=== PATIENT | male | born 1965 | race African-American/Black ===

== ENCOUNTER 2018-02-16 20:37 | Inpatient (IN) | payer OTHER ==
--- NOTE | 2018-02-16 20:57 | HP ---
COWS - Scale Resting Pulse: 0= [place] 80 or Below Sweatin=Flushed/Facial Moisture Restless Observation: 5= Unable to Sit Still Pupil Size: 0= Normal to Room Light Bone or Joint Aches: 4=Acute Joint/Muscle Pain Runny Nose/ Eye Tearin= Runny Nose/Eyes GI Upset > 30mins: 2= Nausea/Diarrhea Tremor Observation: 4= Gross Tremor/Twitching Yawning Observation: 0= None Anxiety or Irritability: 2=Irritable/Anxious Goose Flesh Skin: 0=Smooth Skin COWS Score: 21 CIWA Score - CIWA Score Nausea/Vomitin Muscle Tremors: 4-Moderate,w/Arms Extend Anxiety: 4-Mod. Anxious/Guarded Agitation: 6 Paroxysmal Sweats: 4-Forehead w/Sweat Beads Orientation: 0-Oriented Tacttile Disturbances: 0-None Auditory Disturbances: 0-None Visual Disturbances: 0-None Headache: 2-Mild CIWA-Ar Total Score: 25 Admission ROS BHS - HPI Chief Complaint: C/O WITHDRAWAL SX'S. SEEKING DETOX Allergies/Adverse Reactions: Allergies Allergy/AdvReac Type Severity Reaction Status Date / Time Fish Containing Products Allergy Intermediate Hives Verified 03/15/15 17:34 No Known Drug Allergies Allergy Verified 03/15/15 17:44 History of Present Illness: 52 Y.O. MALE WITH LONG HX/O OF ALCOHOLISM AND OPIOID DEPENDENCE HERE FOR DETOX. CLIENT IS KNOWN TO THIS PROGRAM LAST HERE 2014. REFERRED FROM [facility] AFTER PRESENTING THERE FOR SOB/ COUGH. HE WAS MEDICALLY CLEARED AND REFERRED TO DETOX. DC PAPERS PRESENTED. REPORTS LONGEST CLEAN TIME 2 YEARS SELF SUSTAINED. RELAPSING 4 MONTHS AGO. DENIES HX/O SEIZURES, DT'S AVH. DOES REPORT BLACK OUTS AND HX/O OVERDOSE X1 Exam Limitations: No Limitations - Ebola screening Have you traveled outside of the country in the last 21 days: No Have you had contact with anyone from an Ebola affected area: No Have you been sick,other than usual withdrawal symptoms: No Do you have a fever: No - Review of Systems Constitutional: Chills, Loss of Appetite, Malaise, Night Sweats, Changes in sleep, Unintentional Wgt. Loss EENT: reports: Recent change in vision (LEFT EYE), Nose Congestion (RINORRHEA), Dental Problems (DENTURES) Respiratory: reports: Cough (NEG CXR AT [facility] TODAY), Productive cough ( [facility]), Other (HX/O BRONCHITIS ON SYMBICORT) Cardiac: reports: No Symptoms Reported GI: reports: Diarrhea, Nausea, Poor Appetite, Poor Fluid Intake, Vomiting : reports: No Symptoms Reported Musculoskeletal: reports: No Symptoms Reported Integumentary: reports: No Symptoms Reported Neuro: reports: No Symptoms reported Endocrine: reports: Other (HX/O DM) Hematology: reports: No Symptoms Reported Psychiatric: reports: Agitated, Anxious, Depressed Other Systems: Reviewed and Negative Patient History - Patient Medical History Hx Anemia: No Hx Asthma: Yes (BRONCHITIS) Hx Chronic Obstructive Pulmonary Disease (COPD): No Hx Cancer: No Hx Cardiac Disorders: No Hx Congestive Heart Failure: No Hx Hypertension: No Hx Hypercholesterolemia: No Hx Pacemaker: No HX Cerebrovascular Accident: No Hx Seizures: No Hx Dementia: No Hx Diabetes: Yes (NO MED MGMT) Hx Gastrointestinal Disorders: No Hx Liver Disease: No Hx Genitourinary Disorders: No Hx Sexually Transmitted Disorders: No Hx Renal Disease (ESRD): No Hx Thyroid Disease: No Hx Human Immunodeficiency Virus (HIV): Yes (SINCE 1997,) Hx Hepatitis C: No Hx Depression: Yes Hx Suicide Attempt: No Hx Bipolar Disorder: No Hx Schizophrenia: No Other Medical History: DENIES - Patient Surgical History Past Surgical History: No Hx Neurologic Surgery: No Hx Cataract Extraction: No Hx Cardiac Surgery: No Hx Lung Surgery: No Hx Breast Surgery: No Hx Breast Biopsy: No Hx Abdominal Surgery: No Hx Appendectomy: No Hx Cholecystectomy: No Hx Genitourinary Surgery: No Hx Section: No Hx Orthopedic Surgery: No Anesthesia Reaction: No - PPD History Previous Implant?: Yes Documented Results: Negative w/proof Implanted On Prior R Admission?: Yes Date: 03/17/15 Results: 0mm PPD to be Administered?: Yes - Smoking Cessation Smoking history: Current every day smoker Have you smoked in the past 12 months: Yes Aproximately how many cigarettes per day: 10 Cigars Per Day: 0 Hx Chewing Tobacco Use: No Initiated information on smoking cessation: Yes 'Breaking Loose' booklet given: 02/16/18 - Substance & Tx. History Hx Alcohol Use: Yes Hx Substance Use: Yes Substance Use Type: Alcohol, Heroin, Marijuana Hx Substance Use Treatment: Yes ([facility]) - Substances Abused HEROIN Route: SNIFFING Frequency: Daily Amount used: 10 BAGS Age of first use: 36 Date of Last Use: 02/16/18 BEER/VODKA Route: Oral Frequency: Daily Amount used: 2-6PACK/3PINTS Age of first use: 11 Date of Last Use: 02/16/18 THC Route: Smoking Frequency: Daily Amount used: 1 JOINT Age of first use: 11 Date of Last Use: 02/16/18 Family Disease History - Family Disease History Family Disease History: Diabetes: Mother (HTN), Heart Disease: Mother, CA: Sister Admission Physical Exam [facility] - Vital Signs Vital Signs: Vital Signs - 24 hr 02/16/18 20:50 Temperature 98.2 F Pulse Rate 80 Respiratory 18 Rate Blood Pressure 109/57 - Physical General Appearance: Yes: Appropriately Dressed, Mild Distress, Cachetic, Thin, Irritable, Anxious HEENTM: Yes: EOMI, Normocephalic, Normal Voice, LARRY, Pharynx Normal, Nasal Congestion, Other (DENTURES UUPER/LOWER) Respiratory: Yes: Chest Non-Tender, Lungs Clear, Normal Breath Sounds, No Respiratory Distress, No Accessory Muscle Use Neck: Yes: No masses,lesions,Nodules, Supple, Trachea in good position Breast: Yes: Breast Exam Deferred Cardiology: Yes: Regular Rhythm, Regular Rate, S1, S2 Abdominal: Yes: Normal Bowel Sounds, Non Tender, Flat, Soft Genitourinary: Yes: Within Normal Limits Back: Yes: Normal Inspection Musculoskeletal: Yes: full range of Motion, Gait Steady Extremities: Yes: Normal Range of Motion, Non-Tender Neurological: Yes: management associate II-XII NML intact, Fully Oriented, Alert, Motor Strength 5/5 Integumentary: Yes: Warm, Moist Lymphatic: Yes: Within Normal Limits - Diagnostic (1) History of bronchitis Current Visit: Yes Status: Acute (2) Alcohol dependence with uncomplicated withdrawal Current Visit: Yes Status: Acute (3) Opioid dependence with withdrawal Current Visit: Yes Status: Acute (4) Alcohol-induced mood disorder Current Visit: Yes Status: Suspected (5) Alcohol-induced sleep disorder Current Visit: Yes Status: Suspected (6) Drug-induced mood disorder Current Visit: Yes Status: Suspected (7) Weight decreased Current Visit: Yes Status: Chronic (8) Acquired immune deficiency syndrome (AIDS) Current Visit: Yes Status: Chronic Comment: NON COMPLIANT WITH MEDS (9) Asthma Current Visit: Yes Status: Chronic Qualifiers: Asthma severity: mild Asthma persistence: intermittent Asthma complication type: unspecified Qualified Code(s): J45.20 - Mild intermittent asthma, uncomplicated (10) Type 2 diabetes mellitus Current Visit: Yes Status: Chronic Comment: STATES NOT ON MED MGMT Cleared for Admission BHS - Detox or Rehab S Level of Care: Medically Managed Detox Regimen/Protocol: Methadone/Librium Claeared for Rehab Admission: No BHS Breath Alcohol Content Breath Alcohol Content: 0.143 Urine Drug Screen - Results Drug Screen Negative: No Urine Drug Screen Results: THC-Marijuana, OPI-Opiates
[2018-02-16] MEDS ORDERED: ALBUTEROL SO4 8 GM HFA INHALER IH PRN (21:12)
[2018-02-16] MEDS ORDERED: IBUPROFEN 400 MG TABLET (FP) PO PRN (21:29)
[2018-02-16] MEDS ORDERED: hydrOXYzine PAMOATE 50 MG CAPSULE (FP) PO PRN (21:29)
[2018-02-16] MEDS ORDERED: MAGNESIUM CITRATE 300 ML BOTTLE PO PRN (21:29)
[2018-02-16] MEDS ORDERED: ACETAMINOPHEN 325 MG TABLET (FP) PO PRN (21:29)
[2018-02-16] MEDS ORDERED: MAGNESIUM HYDROX 2400MG/30ML ORAL SUSPENSION 30 ML CUP PO PRN (21:29)
[2018-02-16] MEDS ORDERED: METHADONE HCL 10 MG TABLET (FOR DETOX USE ONLY) PO ONE ×2 (21:29→23:00)
[2018-02-16] MEDS ORDERED: P-EPHED 60MG/TRIPROLIDI 2.5MG TABLET PO PRN (21:29)
[2018-02-16] MEDS ORDERED: MAG HYDROX/AL HYDROX/SIMETH 30 ML UNIT-DOSE CUP PO PRN (21:29)
[2018-02-16] MEDS ORDERED: LOPERAMIDE HCL 2 MG CAPSULE PO PRN (21:29)
[2018-02-16] MEDS ORDERED: NICOTINE POLACRILEX 2 MG GUM BC PRN (21:29)
[2018-02-16] MEDS ORDERED: MENTHOL/PHENOL 1 EACH UD MM PRN (21:29)
[2018-02-16] MEDS ORDERED: guaiFENesin/D-METHORPHAN HB 10 ML UNIT-DOSE CUPS PO PRN (21:29)
[2018-02-16] MEDS ORDERED: MELATONIN 5 MG TABLETS PO PRN (22:00)
[2018-02-16] MEDS: THIAMINE HCL 100 MG TABLET (FP) PO SCH (23:15)
[2018-02-16] MEDS: chlordiazePOXIDE HCL 25 MG CAPSULE PO SCH (23:16)
[2018-02-16 23:52] LABS: URINE APPEARANCE CLEAR; URINE BILIRUBIN NEGATIVE (<2.0 mg/dL); URINE COLOR STRAW; URINE GLUCOSE (UA) NEGATIVE (NEGATIVE); URINE KETONE NEGATIVE (NEGATIVE); URINE LEUK ESTERASE NEGATIVE (NEGATIVE); URINE NITRITE NEGATIVE (NEGATIVE); URINE PROTEIN NEGATIVE (NEGATIVE); URINE UROBILINOGEN NEGATIVE mg/dL (0.2-1.0)
[2018-02-17] MEDS: chlordiazePOXIDE HCL 25 MG CAPSULE PO SCH ×4 (05:28→22:15)
--- NOTE | 2018-02-17 09:31 | PN ---
S CIWA - CIWA Score Nausea/Vomitin Muscle Tremors: 3 Anxiety: 3 Agitation: 2 Paroxysmal Sweats: 1-Minimal Palms Moist Orientation: 0-Oriented Tacttile Disturbances: 1-Very Mild Itch/Numbness Auditory Disturbances: 1-Very Mild Visual Disturbances: 0-None Headache: 2-Mild CIWA-Ar Total Score: 16 BHS Progress Note (SOAP) Subjective: alert,irritable,anxious,interrupted sleep,tremor Objective: 02/17/18 09:28 Vital Signs Temperature 97.7 F 02/17/18 09:04 Pulse Rate 76 02/17/18 09:04 Respiratory Rate 18 02/17/18 09:04 Blood Pressure 113/59 02/17/18 09:04 O2 Sat by Pulse Oximetry (%) ekg nsr 71/min qt/qtc 380/412 no chest pain,no sob,no dizziness Laboratory Last Values Urine Color Straw 02/16/18 23:06 Urine Appearance Clear 02/16/18 23:06 Urine pH 6.0 (5.0-8.0) 02/16/18 23:06 Ur Specific [place] 1.003 (1.001-1.035) 02/16/18 23:06 Urine Protein Negative (NEGATIVE) 02/16/18 23:06 Urine Glucose (UA) Negative (NEGATIVE) 02/16/18 23:06 Urine Ketones Negative (NEGATIVE) 02/16/18 23:06 Urine Blood Negative (NEGATIVE) 02/16/18 23:06 Urine Nitrite Negative (NEGATIVE) 02/16/18 23:06 Urine Bilirubin Negative (<2.0 mg/dL) 02/16/18 23:06 Urine Urobilinogen Negative mg/dL (0.2-1.0) 02/16/18 23:06 Ur Leukocyte Esterase Negative (NEGATIVE) 02/16/18 23:06 labs pending Assessment: 02/17/18 09:30 withdrawal symptom Plan: continue detox,bgm monitoring
[2018-02-17 09:45] LABS: HEMATOCRIT 43.3 % (35.4-49); HEMOGLOBIN 14.3 GM/dL (11.7-16.9); MCH 30.5 pg (25.7-33.7); MCHC 33.1 g/dl (32.0-35.9); MEAN PLT VOLUME 8.8 fl (7.5-11.1); PLATELET COUNT 194 K/MM3 (134-434); RDW 13.6 % (11.9-15.9); WHITE BLOOD COUNT 2.5 K/mm3 (4.0-10.0)
[2018-02-17] MEDS ORDERED: METHADONE HCL 10 MG TABLET (FOR DETOX USE ONLY) PO SCH (10:00)
[2018-02-17] MEDS: PRENATAL VITAMINS W/ FOLIC ACID TABLET (FP) PO SCH (10:25)
[2018-02-17] MEDS: NICOTINE 14 MG/24 HOURS TOPICAL PATCH TD SCH (10:25)
[2018-02-17 10:34] LABS: ALBUMIN 3.3 g/dl (3.4-5.0); ANION GAP 9 (8-16); BILIRUBIN,TOTAL 0.3 mg/dL (0.2-1.0); BLOOD UREA NITROGEN 6 mg/dL (7-18); CALCIUM 8.6 mg/dL (8.5-10.1); CHLORIDE 107 mmol/L (98-107); CO2 28 mmol/L (21-32); CREATININE 0.5 mg/dL (0.7-1.3); GLUCOSE,RANDOM 87 mg/dL (74-106); SGOT/AST 59 U/L (15-37); SGPT/ALT 58 U/L (12-78); SODIUM 144 mmol/L (136-145); TOT PROT 6.5 g/dl (6.4-8.2)
[2018-02-17 10:35] LABS: ALK PHOS 56 U/L (45-117)
--- NOTE | 2018-02-17 13:06 | CONSULT ---
[facility] Psychiatric Consult - Data Date of interview: 02/17/18 Admission source: [facility] Identifying data: Patient is a 52 year old single male, without kids, unemployed , and residing with girlfriend. This is one of multiple admissions for patient. Pt. admitted to for alcohol and opiate dependence. Substance Abuse History: Smoking Cessation. Smoking history: Current every day smoker. Have you smoked in the past 12 months: Yes. Aproximately how many cigarettes per day: 10. Cigars Per Day: 0. Hx Chewing Tobacco Use: No. Initiated information on smoking cessation: Yes. 'Breaking Loose' booklet given : 02/17/18. - Substance & Tx. History. Hx Alcohol Use: Yes. Hx Substance Use : Yes. Substance Use Type: Alcohol. Hx Substance Use Treatment: Yes ([facility]). - Substances Abused. VODKA. Route: Oral. Frequency: Daily. Amount used: 2 PINTS. Age of first use: 14. Date of Last Use: 02/16/18 Medical History: Asthma, Diabetes, HIV Psychiatric History: Patient reports two psychiatric hospitalizations in [facility] "many years ago" but is unable to recall the name of the psychiatric facility. OPD is currently provided in the [place], [place]. States he is prescribed seroquel 25mg and mirtzapine 15mg. Most recently took medications 4-5 months ago. Reports nonadherence due to drug use. Pt. prefers to complete detox before restarting psychotropic medications. Pt. denies h/o suicide attempt. Physical/Sexual Abuse/Trauma History: Denies. Mental Status Exam - Mental Status Exam Alert and Oriented to: Time, Place, Person Cognitive Function: Good Patient Appearance: Well Groomed Mood: Euthymic Affect: Mood Congruent Patient Behavior: Appropriate, Cooperative Speech Pattern: Appropriate Voice Loudness: Normal Thought Process: Goal Oriented Thought Disorder: Not Present Hallucinations: Denies Suicidal Ideation: Denies Homicidal Ideation: Denies Insight/Judgement: Poor Sleep: Fair Appetite: Fair Muscle strength/Tone: Normal Gait/Station: Normal Psychiatric Findings - Problem List ([place] 1, 2,3) (1) Substance induced mood disorder Current Visit: Yes Status: Acute (2) Alcohol dependence with uncomplicated withdrawal Current Visit: Yes Status: Acute (3) Opioid dependence with withdrawal Current Visit: Yes Status: Acute - Initial Treatment Plan Initial Treatment Plan: Psychoeducation provided. Detoxification in progress. Observation.
--- NOTE | 2018-02-17 13:57 | EKG ---
Test Reason : Blood Pressure : / mmHG Vent. Rate : 071 BPM Atrial Rate : 071 BPM P-R Int : 156 ms QRS Dur : 088 ms QT Int : 380 ms P-R-T Axes : 067 064 074 degrees QTc Int : 412 ms NORMAL SINUS RHYTHM SEPTAL INFARCT , AGE UNDETERMINED ABNORMAL ECG NO PREVIOUS ECGS AVAILABLE Confirmed by Jose Luis Mendoza MD ([id number]) on 02/17/2018 1:57:02 PM Referred By: Confirmed By:Jose Luis Mendoza MD
[2018-02-17] MEDS: THIAMINE HCL 100 MG TABLET (FP) PO SCH (22:15)
[2018-02-18] MEDS: chlordiazePOXIDE HCL 25 MG CAPSULE PO SCH ×3 (05:56→17:40)
[2018-02-18] MEDS: PRENATAL VITAMINS W/ FOLIC ACID TABLET (FP) PO SCH (11:22)
[2018-02-18] MEDS: METHADONE HCL 5 MG TABLET (FOR DETOX USE ONLY) PO SCH (11:22)
[2018-02-18] MEDS: NICOTINE 14 MG/24 HOURS TOPICAL PATCH TD SCH (11:24)
--- NOTE | 2018-02-18 12:22 | PN ---
S CIWA - CIWA Score Nausea/Vomitin Muscle Tremors: 3 Anxiety: 3 Agitation: 2 Paroxysmal Sweats: 1-Minimal Palms Moist Orientation: 0-Oriented Tacttile Disturbances: 1-Very Mild Itch/Numbness Auditory Disturbances: 1-Very Mild Visual Disturbances: 0-None Headache: 2-Mild CIWA-Ar Total Score: 16 BHS COWS - Scale Resting Pulse: 0= [place] 80 or Below Sweatin= Chills/Flushing Restless Observation: 3= Extraneous Movement Pupil Size: 1= Pupils >than Normal Bone or Joint Aches: 2= Severe Diffuse Aches Runny Nose/ Eye Tearin= Nasal Congestion GI Upset > 30mins: 2= Nausea/Diarrhea Tremor Observation of Outstretched Hands: 2= Slight Tremor Visible Yawning Observation: 0= None Anxiety or Irritability: 2=Irritable/Anxious Goose Flesh Skin: 0=Smooth Skin COWS Score: 14 BHS Progress Note (SOAP) Subjective: alert,irritable,anxious,interrupted sleep,pain in the body Objective: 02/18/18 12:20 Vital Signs Temperature 97.5 F L 02/18/18 11:33 Pulse Rate 81 02/18/18 11:33 Respiratory Rate 16 02/18/18 11:33 Blood Pressure 92/76 02/18/18 11:33 O2 Sat by Pulse Oximetry (%) Laboratory Last Values WBC 2.5 K/mm3 (4.0-10.0) L 02/17/18 07:00 RBC 4.70 M/mm3 (4.00-5.60) 02/17/18 07:00 Hgb 14.3 GM/dL (11.7-16.9) 02/17/18 07:00 Hct 43.3 % (35.4-49) 02/17/18 07:00 MCV 92.0 fl (80-96) 02/17/18 07:00 MCH 30.5 pg (25.7-33.7) 02/17/18 07:00 MCHC 33.1 g/dl (32.0-35.9) 02/17/18 07:00 RDW 13.6 % (11.9-15.9) 02/17/18 07:00 Plt Count 194 K/MM3 (134-434) D 02/17/18 07:00 MPV 8.8 fl (7.5-11.1) 02/17/18 07:00 Sodium 144 mmol/L (136-145) 02/17/18 07:00 Potassium 4.0 mmol/L (3.5-5.1) 02/17/18 07:00 Chloride 107 mmol/L (98-107) 02/17/18 07:00 Carbon Dioxide 28 mmol/L (21-32) 02/17/18 07:00 Anion Gap 9 (8-16) 02/17/18 07:00 BUN 6 mg/dL (7-18) L 02/17/18 07:00 Creatinine 0.5 mg/dL (0.7-1.3) L 02/17/18 07:00 Creat Clearance w eGFR > 60 (>60) 02/17/18 07:00 POC Glucometer 92 UNITS (80-120) 02/18/18 07:34 Random Glucose 87 mg/dL (74-106) 02/17/18 07:00 Calcium 8.6 mg/dL (8.5-10.1) 02/17/18 07:00 Total Bilirubin 0.3 mg/dL (0.2-1.0) 02/17/18 07:00 AST 59 U/L (15-37) H D 02/17/18 07:00 ALT 58 U/L (12-78) D 02/17/18 07:00 Alkaline Phosphatase 56 U/L (45-117) 02/17/18 07:00 Total Protein 6.5 g/dl (6.4-8.2) 02/17/18 07:00 Albumin 3.3 g/dl (3.4-5.0) L 02/17/18 07:00 Urine Color Straw 02/16/18 23:06 Urine Appearance Clear 02/16/18 23:06 Urine pH 6.0 (5.0-8.0) 02/16/18 23:06 Ur Specific [place] 1.003 (1.001-1.035) 02/16/18 23:06 Urine Protein Negative (NEGATIVE) 02/16/18 23:06 Urine Glucose (UA) Negative (NEGATIVE) 02/16/18 23:06 Urine Ketones Negative (NEGATIVE) 02/16/18 23:06 Urine Blood Negative (NEGATIVE) 02/16/18 23:06 Urine Nitrite Negative (NEGATIVE) 02/16/18 23:06 Urine Bilirubin Negative (<2.0 mg/dL) 02/16/18 23:06 Urine Urobilinogen Negative mg/dL (0.2-1.0) 02/16/18 23:06 Ur Leukocyte Esterase Negative (NEGATIVE) 02/16/18 23:06 RPR Titer Nonreactive (NONREACTIVE) 02/17/18 07:00 Assessment: 02/18/18 12:21 withdrawal symptom Plan: continue detox,bgm monitoring
[2018-02-18] MEDS: chlordiazePOXIDE HCL 25 MG CAPSULE PO PRN (14:28)
[2018-02-18] MEDS: chlordiazePOXIDE 5 MG CAPSULE PO SCH (22:24)
[2018-02-18] MEDS: THIAMINE HCL 100 MG TABLET (FP) PO SCH (22:24)
[2018-02-18] MEDS: RITONAVIR/LOPINAVIR 50MG/200MG 1 COMBO TABLET PO SCH (22:25)
[2018-02-19] MEDS: chlordiazePOXIDE HCL 25 MG CAPSULE PO PRN (03:38)
[2018-02-19] MEDS: chlordiazePOXIDE 5 MG CAPSULE PO SCH ×3 (05:40→17:38)
[2018-02-19] MEDS: PRENATAL VITAMINS W/ FOLIC ACID TABLET (FP) PO SCH (10:19)
[2018-02-19] MEDS: SULFAMETHOXAZOLE/TRIMETHOPRIM 800MG/160MG D.S. TABLET PO SCH (10:19)
[2018-02-19] MEDS: RITONAVIR/LOPINAVIR 50MG/200MG 1 COMBO TABLET PO SCH ×2 (10:20→22:06)
[2018-02-19] MEDS: EMTRICITABINE 200MG/TENOFOVIR 300MG PO SCH (10:20)
[2018-02-19] MEDS: METHADONE HCL 5 MG TABLET (FOR DETOX USE ONLY) PO SCH (10:20)
[2018-02-19] MEDS: NICOTINE 14 MG/24 HOURS TOPICAL PATCH TD SCH (10:22)
--- NOTE | 2018-02-19 12:29 | PN ---
S Progress Note (SOAP) Subjective: alert,irritable,anxious,interrupted sleep Objective: 02/19/18 12:28 Vital Signs Temperature 97.7 F 02/19/18 10:09 Pulse Rate 69 02/19/18 10:09 Respiratory Rate 18 02/19/18 10:09 Blood Pressure 103/66 02/19/18 10:09 O2 Sat by Pulse Oximetry (%) Assessment: 02/19/18 12:28 withdrawal symptom Plan: continue detox,discharge in am
[2018-02-19] MEDS: chlordiazePOXIDE HCL 10 MG CAPSULE PO SCH (22:06)
[2018-02-19] MEDS: THIAMINE HCL 100 MG TABLET (FP) PO SCH (22:06)
[2018-02-20] MEDS: chlordiazePOXIDE HCL 10 MG CAPSULE PO SCH (05:52)
--- NOTE | 2018-02-20 08:17 | PN ---
S Progress Note (SOAP) Subjective: alert,no complaint Objective: 02/20/18 08:14 Vital Signs Temperature 97.9 F 02/20/18 06:46 Pulse Rate 69 02/20/18 06:46 Respiratory Rate 18 02/20/18 06:46 Blood Pressure 90/50 02/20/18 06:46 O2 Sat by Pulse Oximetry (%) Assessment: 02/20/18 08:14 patient is stable for discharge today,would like to go home Plan: discharge today,follow up with after care program as arrangement and primary care provider for medical follow up, has all medications at home
--- NOTE | 2018-02-20 08:23 | DS ---
[facility] Detox Discharge Summary Admission Date: 02/16/18 Discharge Date: 02/20/18 - History Present History: Alcohol Dependence, Opioid Dependence Additional Comments: patient is stable to go home,follow up with after care program as arrangement, and primary care provider for medical problem,has all medication at home will follow for fluctuation of glucose,diet modification Pertinent Past History: aids asthma weight loss - Physical Exam Results Vital Signs: Vital Signs Temperature 97.9 F 02/20/18 06:46 Pulse Rate 69 02/20/18 06:46 Respiratory Rate 18 02/20/18 06:46 Blood Pressure 90/50 02/20/18 06:46 O2 Sat by Pulse Oximetry (%) Pertinent Admission Physical Exam Findings: withdrawal signs and symptom Vital Signs Temperature 97.9 F 02/20/18 06:46 Pulse Rate 69 02/20/18 06:46 Respiratory Rate 18 02/20/18 06:46 Blood Pressure 90/50 02/20/18 06:46 O2 Sat by Pulse Oximetry (%) Laboratory Last Values WBC 2.5 K/mm3 (4.0-10.0) L 02/17/18 07:00 RBC 4.70 M/mm3 (4.00-5.60) 02/17/18 07:00 Hgb 14.3 GM/dL (11.7-16.9) 02/17/18 07:00 Hct 43.3 % (35.4-49) 02/17/18 07:00 MCV 92.0 fl (80-96) 02/17/18 07:00 MCH 30.5 pg (25.7-33.7) 02/17/18 07:00 MCHC 33.1 g/dl (32.0-35.9) 02/17/18 07:00 RDW 13.6 % (11.9-15.9) 02/17/18 07:00 Plt Count 194 K/MM3 (134-434) D 02/17/18 07:00 MPV 8.8 fl (7.5-11.1) 02/17/18 07:00 Sodium 144 mmol/L (136-145) 02/17/18 07:00 Potassium 4.0 mmol/L (3.5-5.1) 02/17/18 07:00 Chloride 107 mmol/L (98-107) 02/17/18 07:00 Carbon Dioxide 28 mmol/L (21-32) 02/17/18 07:00 Anion Gap 9 (8-16) 02/17/18 07:00 BUN 6 mg/dL (7-18) L 02/17/18 07:00 Creatinine 0.5 mg/dL (0.7-1.3) L 02/17/18 07:00 Creat Clearance w eGFR > 60 (>60) 02/17/18 07:00 POC Glucometer 98 UNITS (80-120) 02/20/18 05:55 Random Glucose 87 mg/dL (74-106) 02/17/18 07:00 Calcium 8.6 mg/dL (8.5-10.1) 02/17/18 07:00 Total Bilirubin 0.3 mg/dL (0.2-1.0) 02/17/18 07:00 AST 59 U/L (15-37) H D 02/17/18 07:00 ALT 58 U/L (12-78) D 02/17/18 07:00 Alkaline Phosphatase 56 U/L (45-117) 02/17/18 07:00 Total Protein 6.5 g/dl (6.4-8.2) 02/17/18 07:00 Albumin 3.3 g/dl (3.4-5.0) L 02/17/18 07:00 Urine Color Straw 02/16/18 23:06 Urine Appearance Clear 02/16/18 23:06 Urine pH 6.0 (5.0-8.0) 02/16/18 23:06 Ur Specific [place] 1.003 (1.001-1.035) 02/16/18 23:06 Urine Protein Negative (NEGATIVE) 02/16/18 23:06 Urine Glucose (UA) Negative (NEGATIVE) 02/16/18 23:06 Urine Ketones Negative (NEGATIVE) 02/16/18 23:06 Urine Blood Negative (NEGATIVE) 02/16/18 23:06 Urine Nitrite Negative (NEGATIVE) 02/16/18 23:06 Urine Bilirubin Negative (<2.0 mg/dL) 02/16/18 23:06 Urine Urobilinogen Negative mg/dL (0.2-1.0) 02/16/18 23:06 Ur Leukocyte Esterase Negative (NEGATIVE) 02/16/18 23:06 RPR Titer Nonreactive (NONREACTIVE) 02/17/18 07:00 - Treatment Hospital Course: Detox Protocol Followed, Detoxed Safely, Responded well, Discharged Condition Good Patient has Accepted a Rehab Referral to: [facility] - Medication Discharge Medications: Ambulatory Orders Albuterol Sulfate Inhaler - [Ventolin HFA Inhaler -] 2 inh IH Q4HPO PRN #1 inh 11/01/13 Emtricitabine/Tenofovir [Truvada -] 1 tab PO DAILY #30 tablet 11/01/13 Quetiapine Fumarate [Seroquel -] 150 mg PO HS #30 tablet 11/01/13 Ritonavir/Lopinavir [Kaletra 200Mg/50Mg -] 2 combo PO BID #60 tablet 11/01/13 Sulfamethoxazole/Trimethoprim [Bactrim DS -] 1 tab PO DAILY #30 tablet 11/01/13 Benztropine Mesylate [Cogentin -] 1 mg PO HS #30 tablet 03/16/15 Mirtazapine [Remeron -] 15 mg PO HS #30 tablet 03/16/15 Olanzapine [Zyprexa -] 2.5 mg PO HS #30 tablet 03/16/15 - Diagnosis (1) Opioid dependence with withdrawal Current Visit: Yes Status: Acute (2) Alcohol dependence with uncomplicated withdrawal Current Visit: Yes Status: Acute (3) Acquired immune deficiency syndrome (AIDS) Current Visit: Yes Status: Chronic (4) Asthma Current Visit: Yes Status: Chronic Qualifiers: Asthma severity: mild Asthma persistence: intermittent Asthma complication type: unspecified Qualified Code(s): J45.20 - Mild intermittent asthma, uncomplicated (5) Type 2 diabetes mellitus Current Visit: Yes Status: Chronic (6) Weight decreased Current Visit: Yes Status: Chronic
[2018-02-20] MEDS: RITONAVIR/LOPINAVIR 50MG/200MG 1 COMBO TABLET PO SCH (09:06)
[2018-02-20] MEDS: EMTRICITABINE 200MG/TENOFOVIR 300MG PO SCH (09:06)
[2018-02-20] MEDS: PRENATAL VITAMINS W/ FOLIC ACID TABLET (FP) PO SCH (09:07)
[2018-02-20] MEDS: SULFAMETHOXAZOLE/TRIMETHOPRIM 800MG/160MG D.S. TABLET PO SCH (09:07)
[2018-02-20 09:31] VITALS: BP 138/91; PULSE 67; TEMP 97.7
[2018-02-20] MEDS ORDERED: METHADONE HCL 10 MG TABLET (FOR DETOX USE ONLY) PO SCH (10:00)
[2018-02-21] MEDS ORDERED: METHADONE HCL 5 MG TABLET (FOR DETOX USE ONLY) PO SCH (06:00)
== END 2018-02-20 09:13 | disposition home or self-care (01) | DRG 773 ==
LOC: YASAS 20:37 → Y6N 22:24
PROVIDERS: ADMIT Surgery; ATTEND Surgery
PROC: HZ2ZZZZ Detoxification Services for Substance Abuse Treatment (ICD-10-PCS; principal; 2018-02-16)
DX: F11.23 Opioid dependence with withdrawal (principal); F10.230 Alcohol dependence with withdrawal, uncomplicated; F19.24 Other psychoactive substance dependence with psychoactive substance-induced mood disorder; B20 Human immunodeficiency virus [HIV] disease; J45.20 Mild intermittent asthma, uncomplicated; E11.9 Type 2 diabetes mellitus without complications; R63.4 Abnormal weight loss; Z68.20 Body mass index [BMI] 20.0-20.9, adult; Z91.013 Allergy to seafood; F10.24 Alcohol dependence with alcohol-induced mood disorder; F10.282 Alcohol dependence with alcohol-induced sleep disorder; J40 Bronchitis, not specified as acute or chronic
CPT/HCPCS: 36415; 80053; 81003; 82962; 85027; 86593; 93005; 93010

== ENCOUNTER 2019-04-27 20:32 | Inpatient (IN) | payer OTHER ==
[2019-04-27 22:40] VITALS: BMI 18.6
--- NOTE | 2019-04-27 23:00 | HP ---
COWS - Scale Resting Pulse: 1= NE 81-100 Sweatin= Chills/Flushing Restless Observation: 1= Difficult to Sit Still Pupil Size: 0= Normal to Room Light Bone or Joint Aches: 4=Acute Joint/Muscle Pain Runny Nose/ Eye Tearin= Nasal Congestion GI Upset > 30mins: 3= Vomiting/Diarrhea Tremor Observation: 2= Slight Tremor Visible Yawning Observation: 1= 1-2x During Session Anxiety or Irritability: 2=Irritable/Anxious Goose Flesh Skin: 0=Smooth Skin COWS Score: 16 CIWA Score Nausea/Vomitin Muscle Tremors: 1-None Visible, but [place] Anxiety: 1-Mildly Anxious Agitation: 1-Slight > Activity Paroxysmal Sweats: 3 Orientation: 0-Oriented Tacttile Disturbances: 0-None Auditory Disturbances: 0-None Visual Disturbances: 2-Mild Sensitivity Headache: 2-Mild CIWA-Ar Total Score: 13 - Admission Criteria OASAS Guidelines: Admission for Medically Managed Detox: Requires at least one of the followin. CIWA greater than 12 2. Seizures within the past 24 hours 3. Delirium tremens within the past 24 hours 4. Hallucinations within the past 24 hours 5. Acute intervention needed for co occurring medical disorder 6. Acute intervention needed for co occurring psychiatric disorder 7. Severe withdrawal that cannot be handled at a lower level of care (continued vomiting, continued diarrhea, abnormal vital signs) requiring intravenous medication and/or fluids 8. Patient presents the following: CIWA greater than 12 Admission Criteria Met: Admission criteria met Admitting History and Physical - Smoking History Smoking history: Current every day smoker Have you smoked in the past 12 months: Yes Aproximately how many cigarettes per day: 10 - Alcohol/Substance Use Hx Alcohol Use: Yes Admission ROS S - [facility] Chief Complaint: C/O WITHDRAWAL SX'S Allergies/Adverse Reactions: Allergies Allergy/AdvReac Type Severity Reaction Status Date / Time Fish Containing Products Allergy Intermediate Hives Verified 04/27/19 22:06 No Known Drug Allergies Allergy Verified 04/27/19 22:06 History of Present Illness: 53 Y.O. MALE WITH ALCOHOLISM AND OPIOID DEPENDENCE HERE FOR DETOX. [facility] REFERRED HE IS KNOWN TO THIS PROGRAM. REPORTS DAILY USE OF BOTH SUBSTANCES. LAST USED BOTH ALCOHOL AND HEROIN TODAY. DENIES IVDU, + EYE [employer]. MOST RECENT CLEAN TIME 2 YEARS RELAPSING 1 YEAR AGO. + BLACK OUTS AND AVH WITH INTOXICATION. PRESENTLY DENIES TO INCLUDE SI/HI. LIVES WITH FIDARCYE, SSI, DENIES LEGALS CLIENT WAS DC FROM [facility] AFTER BEING ADMITTED FOR 2 DAYS FOR ASTHMA EXACERBATION. HE WAS DC WITH RX ZITHROMAX 500 MG DAILY X2 MOR DAYS AND BACTRIM DS DAILY X 21 DAYS FOR PCP PROPHYLAXIS ORDERS FOR CONTINUATION OF TXMENT PLACED Exam Limitations: No Limitations - Ebola screening Have you traveled outside of the country in the last 21 days: No (N) Have you had contact with anyone from an Ebola affected area: No Do you have a fever: No - Review of Systems Constitutional: Chills, Loss of Appetite, Malaise, Night Sweats, Changes in sleep EENT: reports: Dental Problems (DENTURES BOTH) Respiratory: reports: No Symptoms reported Cardiac: reports: No Symptoms Reported GI: reports: Nausea, Poor Appetite, Poor Fluid Intake : reports: No Symptoms Reported Musculoskeletal: reports: No Symptoms Reported Integumentary: reports: Flushing Neuro: reports: Headache, Tremors Endocrine: reports: Other (HX/O DM) Hematology: reports: No Symptoms Reported Psychiatric: reports: Orientated x3, Agitated (IRRITABLE), Depressed Other Systems: Reviewed and Negative Patient History - Patient Medical History Hx Anemia: No Hx Asthma: No Hx Chronic Obstructive Pulmonary Disease (COPD): No (Bronchitis) Hx Cancer: No Hx Cardiac Disorders: No Hx Congestive Heart Failure: No Hx Hypertension: No Hx Hypercholesterolemia: No Hx Pacemaker: No HX Cerebrovascular Accident: No Hx Seizures: No Hx Dementia: No Hx Diabetes: Yes (NOT ON MEDS) Hx Gastrointestinal Disorders: No Hx Liver Disease: No Hx Genitourinary Disorders: No Hx Sexually Transmitted Disorders: No Hx Renal Disease (ESRD): No Hx Thyroid Disease: No Hx Human Immunodeficiency Virus (HIV): Yes (SINCE 1997,) Hx Hepatitis C: No Hx Depression: Yes Hx Suicide Attempt: No Hx Bipolar Disorder: No Hx Schizophrenia: No - Patient Surgical History Past Surgical History: No Hx Neurologic Surgery: No Hx Cataract Extraction: No Hx Cardiac Surgery: No Hx Lung Surgery: No Hx Breast Surgery: No Hx Breast Biopsy: No Hx Abdominal Surgery: No Hx Appendectomy: No Hx Cholecystectomy: No Hx Genitourinary Surgery: No Hx Section: No Hx Orthopedic Surgery: No Anesthesia Reaction: No - PPD History Previous Implant?: Yes Documented Results: Negative w/proof Implanted On Prior [facility] Admission?: Yes Date: 02/18/18 Results: 0mm PPD to be Administered?: Yes - Smoking Cessation Smoking history: Current every day smoker Have you smoked in the past 12 months: Yes Aproximately how many cigarettes per day: 10 Cigars Per Day: 0 Hx Chewing Tobacco Use: No Initiated information on smoking cessation: Yes 'Breaking Loose' booklet given: 04/27/19 - Substance & Tx. History Hx Alcohol Use: Yes Hx Substance Use: Yes Substance Use Type: Alcohol, Heroin Hx Substance Use Treatment: Yes ([facility]) - Substances abused Heroin Substance route: Inhalation Frequency: Daily Amount used: 10 bags. Age of first use: 19 Date of last use: 04/27/19 Alcohol Substance route: Oral Frequency: Daily Amount used: fifth of vodka and 6 packs of beer or 2 Age of first use: 11 Date of last use: 04/27/19 Admission Physical Exam [facility] - Vital Signs Vital Signs: Vital Signs - 24 hr 04/27/19 21:59 Temperature 97.7 F Pulse Rate 96 H Respiratory 16 Rate Blood Pressure 118/76 - Physical General Appearance: Yes: Appropriately Dressed, Mild Distress, Thin, Tremorous ( FELT), Anxious HEENTM: Yes: EOMI, Normocephalic, Normal Voice, LARRY, Pharynx Normal, Other ( SKIN TAG NOTED TO LEFT UPPER EYE LID DENTURES BOTH) Respiratory: Yes: Chest Non-Tender, No Respiratory Distress, No Accessory Muscle Use, Wheezing, Expiration Neck: Yes: No masses,lesions,Nodules, Supple, Trachea in good position Breast: Yes: Breast Exam Deferred Cardiology: Yes: Regular Rhythm, Regular Rate, S1, S2 Abdominal: Yes: Normal Bowel Sounds, Non Tender, Soft Genitourinary: Yes: Within Normal Limits (NO C/O OFFERED) Back: Yes: Normal Inspection Musculoskeletal: Yes: full range of Motion, Gait Steady Extremities: Yes: Normal Range of Motion, Non-Tender, Tremors (FLET) Neurological: Yes: Fully Oriented, Alert, Motor Strength 5/5 Integumentary: Yes: Warm, Moist Lymphatic: Yes: Within Normal Limits - Diagnostic (1) Alcohol dependence with uncomplicated withdrawal Current Visit: Yes Status: Acute (2) Opioid dependence with withdrawal Current Visit: Yes Status: Acute (3) Substance induced mood disorder Current Visit: Yes Status: Suspected (4) Acquired immune deficiency syndrome (AIDS) Current Visit: Yes Status: Chronic Comment: NON COMPLIANT WITH MEDS-? GENVOYA (5) Asthma Current Visit: Yes Status: Chronic Qualifiers: Asthma severity: mild Asthma persistence: intermittent Asthma complication type: uncomplicated Qualified Code(s): J45.20 - Mild intermittent asthma, uncomplicated (6) Type 2 diabetes mellitus Current Visit: Yes Status: Chronic Comment: STATES NOT ON MED MGMT (7) Weight decreased Current Visit: Yes Status: Chronic (8) Alcohol-induced mood disorder Current Visit: Yes Status: Suspected (9) Alcohol-induced sleep disorder Current Visit: Yes Status: Suspected (10) Drug-induced mood disorder Current Visit: Yes Status: Suspected Cleared for Admission [facility] - Detox or Rehab [facility] Level of Care: Medically Managed Detox Regimen/Protocol: Methadone/Librium Claeared for Rehab Admission: No Inpatient Rehab Admission - Rehab Decision to Admit Inpatient rehab admission?: No
[2019-04-27] MEDS ORDERED: NICOTINE POLACRILEX 2 MG GUM BUC PRN (23:14)
[2019-04-27] MEDS ORDERED: IBUPROFEN 400 MG TABLET (FP) PO PRN (23:14)
[2019-04-27] MEDS ORDERED: MENTHOL/PHENOL 1 EACH UD MM PRN (23:14)
[2019-04-27] MEDS ORDERED: BISMUTH SUBSALICYLATE 524 MG/30 ML UD PO PRN (23:14)
[2019-04-27] MEDS ORDERED: ONDANSETRON *ODT* 4 MG TABLET SL PRN (23:14)
[2019-04-27] MEDS ORDERED: cloNIDine HCL 0.1 MG TABLET PO PRN (23:14)
[2019-04-27] MEDS ORDERED: METHOCARBAMOL 500 MG TABLET PO PRN (23:14)
[2019-04-27] MEDS ORDERED: MAGNESIUM CITRATE 300 ML BOTTLE PO PRN (23:14)
[2019-04-27] MEDS ORDERED: DICYCLOMINE HCL 10 MG CAPSULE PO PRN (23:14)
[2019-04-27] MEDS ORDERED: MAGNESIUM HYDROX 2400MG/30ML ORAL SUSPENSION 30 ML CUP PO PRN (23:14)
[2019-04-27] MEDS ORDERED: hydrOXYzine PAMOATE 25 MG CAPSULE (FP) PO PRN (23:14)
[2019-04-27] MEDS ORDERED: MAG HYDROX/AL HYDROX/SIMETH 30 ML UNIT-DOSE CUP PO PRN (23:14)
[2019-04-27] MEDS ORDERED: guaiFENesin 200 MG/10 ML 10 ML UNIT-DOSE CUPS PO PRN (23:14)
[2019-04-27] MEDS ORDERED: P-EPHED 60MG/TRIPROLIDI 2.5MG TABLET PO PRN (23:14)
[2019-04-27] MEDS ORDERED: ACETAMINOPHEN 325 MG TABLET (FP) PO PRN ×2 (23:14)
[2019-04-27] MEDS ORDERED: ALBUTEROL SO4 8 GM HFA INHALER IH PRN (23:20)
[2019-04-27] MEDS ORDERED: METHADONE HCL 10 MG TABLET (FOR DETOX USE ONLY) PO ONE (23:40)
[2019-04-28] MEDS: chlordiazePOXIDE HCL 25 MG CAPSULE PO SCH ×5 (00:44→22:19)
[2019-04-28] MEDS ORDERED: METHADONE HCL 5 MG TABLET (FOR DETOX USE ONLY) ONE (09:56)
[2019-04-28] MEDS ORDERED: METHADONE HCL 10 MG TABLET (FOR DETOX USE ONLY) ONE (09:56)
[2019-04-28] MEDS ORDERED: METHADONE (DETOX) 20 MG, METHADONE (DETOX) 5 MG PO ONE (10:00)
[2019-04-28] MEDS: NICOTINE 14 MG/24 HOURS TOPICAL PATCH TD SCH (10:34)
[2019-04-28] MEDS: SULFAMETHOXAZOLE/TRIMETHOPRIM 800MG/160MG D.S. TABLET PO SCH (10:34)
[2019-04-28] MEDS: AZITHROMYCIN 250 MG TABLET PO SCH (10:34)
[2019-04-28] MEDS: PRENATAL VITAMINS W/ FOLIC ACID TABLET (FP) PO SCH (10:34)
[2019-04-28 10:58] LABS: HEMATOCRIT 42.8 % (35.4-49); HEMOGLOBIN 14.1 GM/dL (11.7-16.9); MCH 30.5 pg (25.7-33.7); MCHC 32.9 g/dl (32.0-35.9); MEAN CELL VOLUME 92.5 fl (80-96); MEAN PLT VOLUME 9.6 fl (7.5-11.1); PLATELET COUNT 179 K/MM3 (134-434); RBC 4.62 M/mm3 (4.00-5.60); RDW 15.7 % (11.9-15.9); WHITE BLOOD COUNT 4.3 K/mm3 (4.0-10.0)
[2019-04-28 11:03] LABS: ALBUMIN 3.5 g/dl (3.4-5.0); BILIRUBIN,TOTAL 0.4 mg/dL (0.2-1); BLOOD UREA NITROGEN 11.4 mg/dL (7-18); CREATININE 0.7 mg/dL (0.55-1.3); POTASSIUM 3.9 mmol/L (3.5-5.1); TOT PROT 6.7 g/dl (6.4-8.2)
--- NOTE | 2019-04-28 11:03 | EKG ---
Test Reason : Blood Pressure : / mmHG Vent. Rate : 084 BPM Atrial Rate : 084 BPM P-R Int : 150 ms QRS Dur : 084 ms QT Int : 370 ms P-R-T Axes : 076 045 071 degrees QTc Int : 437 ms NORMAL SINUS RHYTHM SEPTAL INFARCT (CITED ON OR BEFORE 16-FEB-2018) ABNORMAL ECG WHEN COMPARED WITH ECG OF 16-FEB-2018 22:48, NO SIGNIFICANT CHANGE WAS FOUND Confirmed by ARLENE PEDRAZA, AVIS ([id number]) on 04/28/2019 11:02:56 AM Referred By: Malgorzata Huynh Confirmed By:AVIS JACOBS MD
--- NOTE | 2019-04-28 11:33 | CONSULT ---
[facility] Psychiatric Consult - Data Date of interview: 04/28/19 Admission source: [facility] Identifying data: Patient is a 53 year old engaged male, without children, domiicled, and is employed but currently suspended. This is one of multiple admissions for patient. Patient admitted to detox for alcohol and opiate dependence. Substance Abuse History: Smoking Cessation. Smoking history: Current every day smoker. Have you smoked in the past 12 months: Yes. Aproximately how many cigarettes per day: 10. Cigars Per Day: 0. Hx Chewing Tobacco Use: No. Initiated information on smoking cessation: Yes. 'Breaking Loose' booklet given : 04/27/19. - Substance & Tx. History. Hx Alcohol Use: Yes. Hx Substance Use : Yes. Substance Use Type: Alcohol, Heroin. Hx Substance Use Treatment: Yes ( [facility]). - Substances abused. Heroin. Substance route: Inhalation. Frequency: Daily. Amount used: 10 bags. Age of first use: 19. Date of last use: 04/27/19. Alcohol. Substance route: Oral. Frequency: Daily. Amount used: fifth of vodka and 6 packs of beer or 2. Age of first use : 11. Date of last use: 04/27/19 Medical History: Diabetes, HIV Psychiatric History: Patient denies history of psychiatric hospitalizations but as per previous notes patient reported two psychiatric hospitalizations in the State of [place]. States that is currently provided with psychiatric care in the [place]. Reports taking seroquel 25mg + Mirtzapine 15mg HS. Past diagnosis of MDD with psychotic features. Patient denies history of suicide attempt but has reported having one suicide attempt in the past. History is questionable. Patient denies auditory/ visual hallucinations, suicidal/homicidal ideation. Physical/Sexual Abuse/Trauma History: denies. Mental Status Exam - Mental Status Exam Alert and Oriented to: Time, Place, Person Cognitive Function: Good Patient Appearance: Well Groomed Mood: Withdrawn Affect: Mood Congruent Patient Behavior: Fatigued Speech Pattern: Clear Voice Loudness: Moderately Soft/Quiet Thought Process: Goal Oriented Thought Disorder: Not Present Hallucinations: Denies Suicidal Ideation: Denies Homicidal Ideation: Denies Insight/Judgement: Poor Sleep: Poorly Appetite: Fair Muscle strength/Tone: Normal Gait/Station: Normal Psychiatric Findings - Problem List ([place] 1, 2,3) (1) Alcohol dependence with uncomplicated withdrawal Current Visit: Yes Status: Acute (2) Opioid dependence with withdrawal Current Visit: Yes Status: Acute (3) Substance induced mood disorder Current Visit: Yes Status: Acute (4) Opioid dependence Current Visit: Yes Status: Chronic (5) Substance-induced sleep disorder Current Visit: Yes Status: Acute - Initial Treatment Plan Initial Treatment Plan: Psychoeducation provided. Detoxification in progress. Will order Seroquel 25mg HS. As per external records most recent prescription of seroquel + Mirtazapine was given to him in September of 2017. Benefits and side effects discussed. Verbal consent given.
--- NOTE | 2019-04-28 13:06 | PN ---
[facility] CIWA - CIWA Score Nausea/Vomitin-No Nausea/No Vomiting Muscle Tremors: 3 Anxiety: 4-Mod. Anxious/Guarded Agitation: 3 Paroxysmal Sweats: 3 Orientation: 0-Oriented Tacttile Disturbances: 2-Mild Itch/Numbness/Burn Auditory Disturbances: 0-None Visual Disturbances: 0-None Headache: 0-None Present CIWA-Ar Total Score: 15 S COWS - Scale Resting Pulse: 1= OR 81-100 Sweatin= Chills/Flushing Restless Observation: 1= Difficult to Sit Still Pupil Size: 0= Normal to Room Light Bone or Joint Aches: 0= None Runny Nose/ Eye Tearin= None GI Upset > 30mins: 2= Nausea/Diarrhea Tremor Observation of Outstretched Hands: 0= None Yawning Observation: 1= 1-2x During Session Anxiety or Irritability: 2=Irritable/Anxious Goose Flesh Skin: 3=Piloerection COWS Score: 11 S Progress Note (SOAP) Subjective: Anxious, Sweating, Chills, Hot / Cold Sensations, Diarrhea, Poor Appetite. Objective: PATIENT A & O X 3, OBSERVED AMBULATING ON DETOX UNIT UNASSISTED. IN NO ACUTE DISTRESS. 04/28/19 13:03 Vital Signs Temperature 97.4 F L 04/28/19 09:33 Pulse Rate 100 H 04/28/19 09:33 Respiratory Rate 20 04/28/19 09:33 Blood Pressure 112/69 04/28/19 09:33 O2 Sat by Pulse Oximetry (%) Laboratory Tests 04/28/19 04/28/19 04/28/19 08:00 08:00 08:00 WBC 4.3 RBC 4.62 Hgb 14.1 Hct 42.8 MCV 92.5 MCH 30.5 MCHC 32.9 RDW 15.7 D Plt Count 179 MPV 9.6 Sodium 141 Potassium 3.9 Chloride 108 H Carbon Dioxide 27 Anion Gap 5 L BUN 11.4 Creatinine 0.7 Est GFR (CKD-EPI)AfAm 125.75 Est GFR (CKD-EPI)NonAf 108.50 Random Glucose 114 H Calcium 9.0 Total Bilirubin 0.4 AST 45 H ALT 70 H Alkaline Phosphatase 54 Total Protein 6.7 Albumin 3.5 RPR Titer Nonreactive LABS NOTED. PATIENT HAS HAD ELEVATED AST LEVELS ON PREVIOUS ADMISSIONS. 04/28/19 13:04 Assessment: 04/28/19 13:04 WITHDRAWAL SYMPTOMS. ELEVATED AST LEVEL. ELEVATED ALT LEVEL. Plan: CONTINUE DETOX. PATIENT TO BE SENT VIA AMBULANCE TO [facility] ER FOR RIGHT UPPER ARM PAIN AND FOR ABDOMINAL PAIN. SEE FOLLOWING [facility] PROGRESS NOTE.
--- NOTE | 2019-04-28 13:07 | PN ---
[facility] Progress Note Note: PATIENT ADMITTED TO [facility]OX [facility] YESTERDAY FOR DETOX FROM ALCOHOL AND FORM OPIATES.. DURING DAILY AM ROUNDS ASSESSMENT TODAY, PATIENT REPORTS PAIN BOTH IN RIGHT UPPER ARM AND IN UPPER ABDOMEN, BOTH OF WHICH STARTED APPROX. 4 DAYS AGO. PAIN IN ABDOMEN IS SHARP. PATIENT APPEARS GUARDED AND FREQUENTLY HOLDING HIS HAND ON HIS ABDOMEN WHILE WALKING AROUND DETOX UNIT. PATIENT DENIES ANY RECENT HISTORY OF TRAUMATIC INJURY TO EITHER AFFECTED AREA AND HE DENIES HISTORY OF SIMILAR OCCURRENCE IN EITHER AREA IN THE PAST. PATIENT DENIES HISTORY OF I.V.D.U. IN EITHER AFFECTED AREA. SMALL AREA OF SWELLING PALPATED ON RIGHT UPPER ARM, PRIMARILY ALONG EDGE OF HUMERUS. PATIENT REPORTS THAT AREA IS TENDER UPON PALPATION. NO ERYTHEMA OR WOUNDS NOTED ON VISUALIZATION OF RIGHT UPPER ARM. SMALL NODULE PALPATED IN RIGHT UPPER QUADRANT OF ABDOMEN, SLIGHTLY LATERAL TO ABDOMINAL MIDLINE. PATIENT ALSO REPORTS THAT AREA TO BE TENDER UPON PALPATION. NO ERYTHEMA OR WOUNDS NOTED ON VISUALIZATION OF ABDOMEN. PATIENT REPORTS FREQUENT LOOSE BOWEL MOVEMENTS OVER LAST FEW DAYS; HOWEVER, HE NOTES THAT HE HAS NOT YET MOVED HIS BOWELS THUS FAR TODAY. PATIENT DENIES NAUSEA /VOMITING. PATIENT DOES NOTE THAT HE HAS LOST SIGNIFICANT AMOUNT OF WEIGHT OVER LAST FEW MONTHS. VS: BP: 112/69; P: 100; T: 97.4; RR: 20. REPORT GIVEN TO DR. MORELAND AT [facility]. PATIENT TO BE TAKEN VIA AMBULANCE TO [facility] FOR FURTHER MEDICAL EVALUATION. Asiya MORALES NP
[2019-04-28 16:51] LABS: PH,URINE 6.5 (5.0-8.0); URINE APPEARANCE CLEAR; URINE BILIRUBIN NEGATIVE (NEGATIVE); URINE COLOR YELLOW; URINE GLUCOSE (UA) NEGATIVE (NEGATIVE); URINE KETONE NEGATIVE (NEGATIVE); URINE LEUK ESTERASE NEGATIVE (NEGATIVE); URINE NITRITE NEGATIVE (NEGATIVE); URINE PROTEIN NEGATIVE (NEGATIVE); URINE UROBILINOGEN 0.2 mg/dL (0.2-1.0)
[2019-04-28] MEDS: chlordiazePOXIDE HCL 25 MG CAPSULE PO PRN (19:07)
[2019-04-28] MEDS: THIAMINE HCL 100 MG TABLET (FP) PO SCH (22:19)
[2019-04-28] MEDS: ATORVASTATIN CA 10 MG TABLET (FP) PO SCH (22:19)
[2019-04-28] MEDS: QUEtiapine FUMARATE 25 MG TABLET (FP) PO SCH (22:19)
[2019-04-29] MEDS: chlordiazePOXIDE HCL 25 MG CAPSULE PO PRN (05:37)
[2019-04-29] MEDS: chlordiazePOXIDE HCL 25 MG CAPSULE PO SCH ×4 (06:24→22:24)
[2019-04-29] MEDS: PRENATAL VITAMINS W/ FOLIC ACID TABLET (FP) PO SCH (09:55)
[2019-04-29] MEDS: AZITHROMYCIN 250 MG TABLET PO SCH (09:55)
[2019-04-29] MEDS: SULFAMETHOXAZOLE/TRIMETHOPRIM 800MG/160MG D.S. TABLET PO SCH (09:56)
[2019-04-29] MEDS ORDERED: METHADONE HCL 10 MG TABLET (FOR DETOX USE ONLY) PO ONE (10:00)
[2019-04-29] MEDS: NICOTINE 14 MG/24 HOURS TOPICAL PATCH TD SCH (10:00)
--- NOTE | 2019-04-29 15:58 | PN ---
S CIWA - CIWA Score Nausea/Vomitin-No Nausea/No Vomiting Muscle Tremors: None Anxiety: 4-Mod. Anxious/Guarded Agitation: 3 Paroxysmal Sweats: No Perspiration Orientation: 0-Oriented Tacttile Disturbances: 2-Mild Itch/Numbness/Burn Auditory Disturbances: 0-None Visual Disturbances: 0-None Headache: 0-None Present CIWA-Ar Total Score: 9 BHS COWS - Scale Resting Pulse: 1= [place] 81-100 Sweatin= Chills/Flushing Restless Observation: 1= Difficult to Sit Still Pupil Size: 0= Normal to Room Light Bone or Joint Aches: 2= Severe Diffuse Aches Runny Nose/ Eye Tearin= None GI Upset > 30mins: 1= Stomach Cramp Tremor Observation of Outstretched Hands: 0= None Yawning Observation: 1= 1-2x During Session Anxiety or Irritability: 2=Irritable/Anxious Goose Flesh Skin: 0=Smooth Skin COWS Score: 9 BHS Progress Note (SOAP) Subjective: Anxious, Sweating, Body Aches, Poor Appetite, Chills, Hot / Cold Sensations. Patient reports slight improvement in overall Withdrawal / Detox symptoms since yesterday. Objective: PATIENT A & O X 3, OBSERVED AMBULATING ON DETOX UNIT UNASSISTED. IN NO ACUTE DISTRESS. 04/29/19 16:00 Vital Signs Temperature 97.2 F L 04/29/19 13:04 Pulse Rate 84 04/29/19 13:04 Respiratory Rate 18 04/29/19 13:04 Blood Pressure 112/75 04/29/19 13:04 O2 Sat by Pulse Oximetry (%) Laboratory Tests 04/28/19 04/28/19 04/28/19 08:00 08:00 08:00 WBC 4.3 RBC 4.62 Hgb 14.1 Hct 42.8 MCV 92.5 MCH 30.5 MCHC 32.9 RDW 15.7 D Plt Count 179 MPV 9.6 Sodium 141 Potassium 3.9 Chloride 108 H Carbon Dioxide 27 Anion Gap 5 L BUN 11.4 Creatinine 0.7 Est GFR (CKD-EPI)AfAm 125.75 Est GFR (CKD-EPI)NonAf 108.50 POC Glucometer Random Glucose 114 H Calcium 9.0 Total Bilirubin 0.4 AST 45 H ALT 70 H Alkaline Phosphatase 54 Total Protein 6.7 Albumin 3.5 Urine Color Urine Appearance Urine pH Ur Specific [place] Urine Protein Urine Glucose (UA) Urine Ketones Urine Blood Urine Nitrite Urine Bilirubin Urine Urobilinogen Ur Leukocyte Esterase RPR Titer Nonreactive 04/28/19 04/29/19 13:30 05:40 WBC RBC Hgb Hct MCV MCH MCHC RDW Plt Count MPV Sodium Potassium Chloride Carbon Dioxide Anion Gap BUN Creatinine Est GFR (CKD-EPI)AfAm Est GFR (CKD-EPI)NonAf POC Glucometer 99 Random Glucose Calcium Total Bilirubin AST ALT Alkaline Phosphatase Total Protein Albumin Urine Color Yellow Urine Appearance Clear Urine pH 6.5 Ur Specific [place] 1.015 Urine Protein Negative Urine Glucose (UA) Negative Urine Ketones Negative Urine Blood Negative Urine Nitrite Negative Urine Bilirubin Negative Urine Urobilinogen 0.2 Ur Leukocyte Esterase Negative RPR Titer LABS NOTED. RESULT OF BGM FROM EARLIER THIS AM NOTED (99) - WITHIN NORMAL RANGE. 04/29/19 16:01 Assessment: 04/29/19 16:01 WITHDRAWAL SYMPTOMS. ELEVATED AST LEVEL. ELEVATED ALT LEVEL. Plan: CONTINUE DETOX. PATIENT WAS EVALUATED AT [facility] ER YESTERDAY FOR ABDOMINAL PAIN AND FOR RIGHT ARM PAIN. PATIENT ADVISED BY ER MEDICAL PROVIDER TO FOLLOW-UP WITH FOREST OFFICER / SURGEON AFTER DISCHARGE FROM DETOX UNIT FOR FURTHER MEDICAL EVALUATION FOR THIS CONDITION.
[2019-04-29] MEDS: THIAMINE HCL 100 MG TABLET (FP) PO SCH (22:23)
[2019-04-29] MEDS: ATORVASTATIN CA 10 MG TABLET (FP) PO SCH (22:23)
[2019-04-29] MEDS: QUEtiapine FUMARATE 25 MG TABLET (FP) PO SCH (22:23)
[2019-04-29] MEDS: MELATONIN 5 MG TABLETS PO PRN (22:24)
[2019-04-30] MEDS ORDERED: chlordiazePOXIDE HCL 10 MG CAPSULE PO PRN
[2019-04-30] MEDS: chlordiazePOXIDE HCL 10 MG CAPSULE PO SCH ×4 (07:46→22:06)
[2019-04-30] MEDS ORDERED: METHADONE HCL 5 MG TABLET (FOR DETOX USE ONLY) ONE (09:42)
[2019-04-30] MEDS ORDERED: METHADONE HCL 10 MG TABLET (FOR DETOX USE ONLY) ONE (09:42)
[2019-04-30] MEDS ORDERED: METHADONE (DETOX) 10 MG, METHADONE (DETOX) 5 MG PO ONE (10:00)
[2019-04-30] MEDS: SULFAMETHOXAZOLE/TRIMETHOPRIM 800MG/160MG D.S. TABLET PO SCH (10:28)
[2019-04-30] MEDS: PRENATAL VITAMINS W/ FOLIC ACID TABLET (FP) PO SCH (10:28)
[2019-04-30] MEDS: NICOTINE 14 MG/24 HOURS TOPICAL PATCH TD SCH (10:29)
--- NOTE | 2019-04-30 17:20 | PN ---
S CIWA - CIWA Score Nausea/Vomitin-No Nausea/No Vomiting Muscle Tremors: 2 Anxiety: 3 Agitation: 3 Paroxysmal Sweats: No Perspiration Orientation: 0-Oriented Tacttile Disturbances: 0-None Auditory Disturbances: 0-None Visual Disturbances: 0-None Headache: 0-None Present CIWA-Ar Total Score: 8 BHS COWS - Scale Resting Pulse: 1= [place] 81-100 Sweatin= No chills or Flushing Restless Observation: 1= Difficult to Sit Still Pupil Size: 0= Normal to Room Light Bone or Joint Aches: 2= Severe Diffuse Aches Runny Nose/ Eye Tearin= None GI Upset > 30mins: 1= Stomach Cramp Tremor Observation of Outstretched Hands: 2= Slight Tremor Visible Yawning Observation: 1= 1-2x During Session Anxiety or Irritability: 2=Irritable/Anxious Goose Flesh Skin: 0=Smooth Skin COWS Score: 10 BHS Progress Note (SOAP) Subjective: Anxious, Tremors, Body Aches, Stomach Cramping. Patient reports That Current withdrawal Detox Symptoms in General Are Gradually Beginning to Diminish in Severity. Objective: PATIENT A & O X 3, OBSERVED AMBULATING ON DETOX UNIT UNASSISTED. IN NO ACUTE DISTRESS. 04/30/19 17:19 Vital Signs Temperature 96.8 F L 04/30/19 17:11 Pulse Rate 85 04/30/19 17:11 Respiratory Rate 18 04/30/19 17:11 Blood Pressure 94/64 04/30/19 17:11 O2 Sat by Pulse Oximetry (%) Laboratory Tests 04/28/19 04/28/19 04/28/19 08:00 08:00 08:00 WBC 4.3 RBC 4.62 Hgb 14.1 Hct 42.8 MCV 92.5 MCH 30.5 MCHC 32.9 RDW 15.7 D Plt Count 179 MPV 9.6 Sodium 141 Potassium 3.9 Chloride 108 H Carbon Dioxide 27 Anion Gap 5 L BUN 11.4 Creatinine 0.7 Est GFR (CKD-EPI)AfAm 125.75 Est GFR (CKD-EPI)NonAf 108.50 POC Glucometer Random Glucose 114 H Calcium 9.0 Total Bilirubin 0.4 AST 45 H ALT 70 H Alkaline Phosphatase 54 Total Protein 6.7 Albumin 3.5 Urine Color Urine Appearance Urine pH Ur Specific [place] Urine Protein Urine Glucose (UA) Urine Ketones Urine Blood Urine Nitrite Urine Bilirubin Urine Urobilinogen Ur Leukocyte Esterase RPR Titer Nonreactive 04/28/19 04/29/19 13:30 05:40 WBC RBC Hgb Hct MCV MCH MCHC RDW Plt Count MPV Sodium Potassium Chloride Carbon Dioxide Anion Gap BUN Creatinine Est GFR (CKD-EPI)AfAm Est GFR (CKD-EPI)NonAf POC Glucometer 99 Random Glucose Calcium Total Bilirubin AST ALT Alkaline Phosphatase Total Protein Albumin Urine Color Yellow Urine Appearance Clear Urine pH 6.5 Ur Specific [place] 1.015 Urine Protein Negative Urine Glucose (UA) Negative Urine Ketones Negative Urine Blood Negative Urine Nitrite Negative Urine Bilirubin Negative Urine Urobilinogen 0.2 Ur Leukocyte Esterase Negative RPR Titer LABS NOTED. Assessment: 04/30/19 17:19 WITHDRAWAL SYMPTOMS. ELEVATED AST LEVEL. ELEVATED ALT LEVEL. 04/30/19 17:20 Plan: CONTINUE DETOX.
[2019-04-30] MEDS: MELATONIN 5 MG TABLETS PO PRN (22:05)
[2019-04-30] MEDS: THIAMINE HCL 100 MG TABLET (FP) PO SCH (22:05)
[2019-04-30] MEDS: QUEtiapine FUMARATE 25 MG TABLET (FP) PO SCH (22:06)
[2019-04-30] MEDS: ATORVASTATIN CA 10 MG TABLET (FP) PO SCH (22:06)
[2019-05-01] MEDS: chlordiazePOXIDE HCL 10 MG CAPSULE PO SCH ×2 (06:21→17:40)
[2019-05-01] MEDS ORDERED: METHADONE HCL 10 MG TABLET (FOR DETOX USE ONLY) PO ONE (10:00)
[2019-05-01] MEDS: PRENATAL VITAMINS W/ FOLIC ACID TABLET (FP) PO SCH (10:15)
[2019-05-01] MEDS: SULFAMETHOXAZOLE/TRIMETHOPRIM 800MG/160MG D.S. TABLET PO SCH (10:15)
[2019-05-01] MEDS: NICOTINE 14 MG/24 HOURS TOPICAL PATCH TD SCH (10:15)
--- NOTE | 2019-05-01 17:02 | PN ---
S CIWA - CIWA Score Nausea/Vomitin-No Nausea/No Vomiting Muscle Tremors: None Anxiety: 3 Agitation: 2 Paroxysmal Sweats: No Perspiration Orientation: 0-Oriented Tacttile Disturbances: 0-None Auditory Disturbances: 0-None Visual Disturbances: 1-Very Mild Sensitivity Headache: 0-None Present CIWA-Ar Total Score: 6 BHS COWS - Scale Resting Pulse: 1= [place] 81-100 Sweatin= No chills or Flushing Restless Observation: 1= Difficult to Sit Still Pupil Size: 0= Normal to Room Light Bone or Joint Aches: 2= Severe Diffuse Aches Runny Nose/ Eye Tearin= None GI Upset > 30mins: 1= Stomach Cramp Tremor Observation of Outstretched Hands: 0= None Yawning Observation: 1= 1-2x During Session Anxiety or Irritability: 2=Irritable/Anxious Goose Flesh Skin: 0=Smooth Skin COWS Score: 8 BHS Progress Note (SOAP) Subjective: Anxious, Body Aches, Restless. Patient reports That Current Withdrawal / Detox Symptoms have Subsided considerably in severity since time of admission to Detox Unit. Objective: PATIENT A & O X 3, OBSERVED AMBULATING ON DETOX UNIT UNASSISTED. IN NO ACUTE DISTRESS. 05/01/19 17:00 Vital Signs Temperature 97.6 F 05/01/19 14:51 Pulse Rate 86 05/01/19 14:51 Respiratory Rate 18 05/01/19 14:51 Blood Pressure 111/63 05/01/19 14:51 O2 Sat by Pulse Oximetry (%) Laboratory Tests 04/28/19 04/28/19 04/28/19 08:00 08:00 08:00 WBC 4.3 RBC 4.62 Hgb 14.1 Hct 42.8 MCV 92.5 MCH 30.5 MCHC 32.9 RDW 15.7 D Plt Count 179 MPV 9.6 Sodium 141 Potassium 3.9 Chloride 108 H Carbon Dioxide 27 Anion Gap 5 L BUN 11.4 Creatinine 0.7 Est GFR (CKD-EPI)AfAm 125.75 Est GFR (CKD-EPI)NonAf 108.50 POC Glucometer Random Glucose 114 H Calcium 9.0 Total Bilirubin 0.4 AST 45 H ALT 70 H Alkaline Phosphatase 54 Total Protein 6.7 Albumin 3.5 Urine Color Urine Appearance Urine pH Ur Specific [place] Urine Protein Urine Glucose (UA) Urine Ketones Urine Blood Urine Nitrite Urine Bilirubin Urine Urobilinogen Ur Leukocyte Esterase RPR Titer Nonreactive 04/28/19 04/29/19 05/01/19 13:30 05:40 06:21 WBC RBC Hgb Hct MCV MCH MCHC RDW Plt Count MPV Sodium Potassium Chloride Carbon Dioxide Anion Gap BUN Creatinine Est GFR (CKD-EPI)AfAm Est GFR (CKD-EPI)NonAf POC Glucometer 99 185 Random Glucose Calcium Total Bilirubin AST ALT Alkaline Phosphatase Total Protein Albumin Urine Color Yellow Urine Appearance Clear Urine pH 6.5 Ur Specific [place] 1.015 Urine Protein Negative Urine Glucose (UA) Negative Urine Ketones Negative Urine Blood Negative Urine Nitrite Negative Urine Bilirubin Negative Urine Urobilinogen 0.2 Ur Leukocyte Esterase Negative RPR Titer LABS NOTED. RESULT OF BGM ACBK FROM EARLIER IN AM NOTED (185 - ELEVATED). PATIENT ADVISED TO FOLLOW-UP WITH SHRIMP CLEANER AFTER DISCHARGE FROM DETOX UNIT FOR FURTHER MEDICAL EVALUATION (PATIENT REPORTED HISTORY OF DM ON DETOX ADMISSION H & P ASSESSMENT; HOWEVER, HE DENIED TAKING CURRENT MEDICATION TO TREAT THE DM). PATIENT VERBALIZED UNDERSTANDING OF RECOMMENDATION. 05/01/19 17:01 Assessment: 05/01/19 17:00 WITHDRAWAL SYMPTOMS. Plan: CONTINUE DETOX. PATIENT SCHEDULED FOR D/C FROM DETOX UNIT TOMORROW.
[2019-05-01] MEDS: MELATONIN 5 MG TABLETS PO PRN (21:40)
[2019-05-01] MEDS: ATORVASTATIN CA 10 MG TABLET (FP) PO SCH (21:40)
[2019-05-01] MEDS: QUEtiapine FUMARATE 25 MG TABLET (FP) PO SCH (21:40)
[2019-05-01] MEDS: THIAMINE HCL 100 MG TABLET (FP) PO SCH (21:40)
[2019-05-02] MEDS ORDERED: chlordiazePOXIDE HCL 10 MG CAPSULE PO ONE (05:00)
[2019-05-02] MEDS ORDERED: METHADONE HCL 5 MG TABLET (FOR DETOX USE ONLY) PO ONE (06:00)
[2019-05-02 09:14] VITALS: BP 119/69; PULSE 94; TEMP 96.8
--- NOTE | 2019-05-02 13:12 | DS ---
[facility] Detox Discharge Summary Admission Date: 04/27/19 Discharge Date: 05/02/19 - History Present History: Alcohol Dependence, Opioid Dependence Additional Comments: did well with librium and methadone detox regimen sent to ER for abdominal pain unknown origine medically cleared return continue detox patient is alert oriented x 3 speech clearly coherently abdomen soft no rebound tenderness denies pain tolerate food and fluid well patient prefers return to hiv specialist for follow up Pertinent Past History: hiv asthma diabetes - Physical Exam Results Vital Signs: Vital Signs Temperature 96.8 F L 05/02/19 09:00 Pulse Rate 94 H 05/02/19 09:00 Respiratory Rate 20 05/02/19 09:00 Blood Pressure 119/69 05/02/19 09:00 O2 Sat by Pulse Oximetry (%) Pertinent Admission Physical Exam Findings: alcohol and opiate withdrawal sx Laboratory Last Values WBC 4.3 K/mm3 (4.0-10.0) 04/28/19 08:00 RBC 4.62 M/mm3 (4.00-5.60) 04/28/19 08:00 Hgb 14.1 GM/dL (11.7-16.9) 04/28/19 08:00 Hct 42.8 % (35.4-49) 04/28/19 08:00 MCV 92.5 fl (80-96) 04/28/19 08:00 MCH 30.5 pg (25.7-33.7) 04/28/19 08:00 MCHC 32.9 g/dl (32.0-35.9) 04/28/19 08:00 RDW 15.7 % (11.9-15.9) D 04/28/19 08:00 Plt Count 179 K/MM3 (134-434) 04/28/19 08:00 MPV 9.6 fl (7.5-11.1) 04/28/19 08:00 Sodium 141 mmol/L (136-145) 04/28/19 08:00 Potassium 3.9 mmol/L (3.5-5.1) 04/28/19 08:00 Chloride 108 mmol/L (98-107) H 04/28/19 08:00 Carbon Dioxide 27 mmol/L (21-32) 04/28/19 08:00 Anion Gap 5 MMOL/L (8-16) L 04/28/19 08:00 BUN 11.4 mg/dL (7-18) 04/28/19 08:00 Creatinine 0.7 mg/dL (0.55-1.3) 04/28/19 08:00 Est GFR (CKD-EPI)AfAm 125.75 04/28/19 08:00 Est GFR (CKD-EPI)NonAf 108.50 04/28/19 08:00 POC Glucometer 131 UNITS (80-120) 05/02/19 06:42 Random Glucose 114 mg/dL (74-106) H 04/28/19 08:00 Calcium 9.0 mg/dL (8.5-10.1) 04/28/19 08:00 Total Bilirubin 0.4 mg/dL (0.2-1) 04/28/19 08:00 AST 45 U/L (15-37) H 04/28/19 08:00 ALT 70 U/L (13-61) H 04/28/19 08:00 Alkaline Phosphatase 54 U/L (45-117) 04/28/19 08:00 Total Protein 6.7 g/dl (6.4-8.2) 04/28/19 08:00 Albumin 3.5 g/dl (3.4-5.0) 04/28/19 08:00 Urine Color Yellow 04/28/19 13:30 Urine Appearance Clear 04/28/19 13:30 Urine pH 6.5 (5.0-8.0) 04/28/19 13:30 Ur Specific [place] 1.015 (1.010-1.035) 04/28/19 13:30 Urine Protein Negative (NEGATIVE) 04/28/19 13:30 Urine Glucose (UA) Negative (NEGATIVE) 04/28/19 13:30 Urine Ketones Negative (NEGATIVE) 04/28/19 13:30 Urine Blood Negative (NEGATIVE) 04/28/19 13:30 Urine Nitrite Negative (NEGATIVE) 04/28/19 13:30 Urine Bilirubin Negative (NEGATIVE) 04/28/19 13:30 Urine Urobilinogen 0.2 mg/dL (0.2-1.0) 04/28/19 13:30 Ur Leukocyte Esterase Negative (NEGATIVE) 04/28/19 13:30 RPR Titer Nonreactive (NONREACTIVE) 04/28/19 08:00 lab noted - Treatment Hospital Course: Detox Protocol Followed, Detoxed Safely, Responded well, Discharged Condition Good, Rehab Referral Accepted Patient has Accepted [facility] Referral [facility] - Medication Discharge Medications: Ambulatory Orders Albuterol Sulfate Inhaler - [Ventolin HFA Inhaler -] 2 inh IH Q4HPO PRN #1 inh 11/01/13 Ritonavir/Lopinavir [Kaletra 200Mg/50Mg -] 2 combo PO BID #60 tablet 11/01/13 Sulfamethoxazole/Trimethoprim [Bactrim DS -] 1 tab PO DAILY #30 tablet 11/01/13 Benztropine Mesylate [Cogentin -] 1 mg PO HS #30 tablet 03/16/15 Mirtazapine [Remeron -] 15 mg PO HS #30 tablet 03/16/15 Albuterol 0.083% Nebulizer Zoila [Ventolin 0.083% Nebulizer Soln -] 1 neb PO Q4HWA 04/27/19 Atorvastatin Ca [Lipitor] 10 mg PO DAILY 04/27/19 Azithromycin [Zithromax] 500 mg PO DAILY 04/27/19 Clonidine HCl 0.2 mg PO BID 04/27/19 Emtricitabine/Tenofovir [Truvada -] 1 tablet PO DAILY 04/27/19 Folic Acid 1 mg PO DAILY 04/27/19 Multivitamin [One-Daily Multi-Vitamin] 1 tablet PO DAILY 04/27/19 Quetiapine Fumarate [Seroquel -] 25 mg PO HS #30 tablet 04/27/19 Thiamine HCl [Vitamin B-1] 1 tablet PO DAILY 04/27/19 Zinc Sulfate [Orazinc] 1 cap PO DAILY 04/27/19 - Diagnosis (1) Weight decreased Status: Acute (2) Asthma Status: Chronic Qualifiers: Asthma severity: mild Asthma persistence: intermittent Asthma complication type: uncomplicated Qualified Code(s): J45.20 - Mild intermittent asthma, uncomplicated (3) Acquired immune deficiency syndrome (AIDS) Status: Chronic (4) Type 2 diabetes mellitus Status: Chronic Qualifiers: Diabetes mellitus joint terminal attack controller insulin use: unspecified joint terminal attack controller insulin use status Diabetes mellitus complication status: with other specified complication Qualified Code(s): E11.69 - Type 2 diabetes mellitus with other specified complication (5) Alcohol dependence with uncomplicated withdrawal Status: Acute (6) Opioid dependence with withdrawal Status: Acute (7) Substance induced mood disorder Status: Suspected - AMA Did Patient Leave Against Medical Advice: No CIWA Score - CIWA Score Nausea/Vomitin-No Nausea/No Vomiting Muscle Tremors: None Anxiety: 2 Agitation: 1-Slight > Activity Paroxysmal Sweats: No Perspiration Orientation: 0-Oriented Tacttile Disturbances: 0-None Auditory Disturbances: 0-None Visual Disturbances: 0-None Headache: 0-None Present CIWA-Ar Total Score: 3 COWS (PN) - Opiate Withdrawal Resting Pulse: 1= [place] 81-100 Sweatin= Chills/Flushing Restless Observation: 0= Sits Still Pupil Size: 0= Normal to Room Light Bone or Joint Aches: 0= None Runny Nose/ Eye Tearin= None GI Upset > 30mins: 0= None Tremor Observation of Outstretched Hands: 0= None Yawning Observation: 1= 1-2x During Session Anxiety or Irritability: 1=Feels Anxious/Irritable Goose Flesh Skin: 0=Smooth Skin COWS Score: 4
== END 2019-05-02 09:05 | disposition home or self-care (01) | DRG 773 ==
LOC: YASAS 20:32 → Y3N 23:03
PROVIDERS: ADMIT Surgery; ATTEND Surgery
PROC: HZ2ZZZZ Detoxification Services for Substance Abuse Treatment (ICD-10-PCS; principal; 2019-04-27)
DX: F10.230 Alcohol dependence with withdrawal, uncomplicated (principal); F11.23 Opioid dependence with withdrawal; F17.210 Nicotine dependence, cigarettes, uncomplicated; F19.24 Other psychoactive substance dependence with psychoactive substance-induced mood disorder; F19.282 Other psychoactive substance dependence with psychoactive substance-induced sleep disorder; F10.24 Alcohol dependence with alcohol-induced mood disorder; F10.282 Alcohol dependence with alcohol-induced sleep disorder; B20 Human immunodeficiency virus [HIV] disease; E11.9 Type 2 diabetes mellitus without complications; Z79.4 Long term (current) use of insulin; J45.20 Mild intermittent asthma, uncomplicated; R94.5 Abnormal results of liver function studies; Z93.4 Other artificial openings of gastrointestinal tract status; Z68.1 Body mass index [BMI] 19.9 or less, adult; Z91.013 Allergy to seafood
CPT/HCPCS: 36415; 80053; 81003; 82962; 85027; 86593; 93005; 93010

== ENCOUNTER 2019-04-28 14:49 | Emergency (ER) | payer OTHER ==
--- NOTE | 2019-04-28 15:17 | PDOC ---
Rapid Medical Evaluation Time Seen by Provider: 04/28/19 15:15 Medical Evaluation: Allergies Allergy/AdvReac Type Severity Reaction Status Date / Time Fish Containing Products Allergy Intermediate Hives Verified 04/27/19 22:06 No Known Drug Allergies Allergy Verified 04/27/19 22:06 04/28/19 15:15 CC: upper abdominal pain with N/V/D. Sent from [facility] for detox PE: palpable ventral hernia Orders: labs Patient will proceed to ER for further evaluation. 04/28/19 15:18 Discharge Disposition - Diagnosis Abdominal pain - Referrals - Patient Instructions - Post Discharge Activity
[2019-04-28 15:22] VITALS: BMI 22.3
[2019-04-28 16:33] LABS: BASO % 0.7 % (0-2.0); EOS % 4.4 % (0-4.5); HEMATOCRIT 40.9 % (35.4-49); HEMOGLOBIN 13.4 GM/dL (11.7-16.9); LYMPH % 31.3 % (8-40); MCH 30.3 pg (25.7-33.7); MCHC 32.7 g/dl (32.0-35.9); MEAN CELL VOLUME 92.9 fl (80-96); MONO % 11.6 % (3.8-10.2); RDW 15.4 % (11.9-15.9); WHITE BLOOD COUNT 3.2 K/mm3 (4.0-10.0)
[2019-04-28 16:41] LABS: INR 0.91 (0.83-1.09); PROTHROMBIN TIME (PATIENT) 10.7 SEC (9.7-13.0)
[2019-04-28 17:08] LABS: ALBUMIN 3.4 g/dl (3.4-5.0); BILIRUBIN,TOTAL 0.4 mg/dL (0.2-1); BLOOD UREA NITROGEN 13.3 mg/dL (7-18); CALCIUM 9.1 mg/dL (8.5-10.1); CREATININE 0.6 mg/dL (0.55-1.3); POTASSIUM 4.2 mmol/L (3.5-5.1); TOT PROT 6.6 g/dl (6.4-8.2)
--- NOTE | 2019-04-28 17:20 | PDOC ---
History of Present Illness - General Chief Complaint: Pain Stated Complaint: [place] abdominal Time Seen by Provider: 04/28/19 15:15 History Source: Patient Exam Limitations: No Limitations Past History - Past Medical History Allergies/Adverse Reactions: Allergies Allergy/AdvReac Type Severity Reaction Status Date / Time Fish Containing Products Allergy Intermediate Hives Verified 04/28/19 15:20 No Known Drug Allergies Allergy Verified 04/28/19 15:20 Home Medications: Ambulatory Orders Albuterol Sulfate Inhaler - [Ventolin HFA Inhaler -] 2 inh IH Q4HPO PRN #1 inh 11/01/13 Ritonavir/Lopinavir [Kaletra 200Mg/50Mg -] 2 combo PO BID #60 tablet 11/01/13 Sulfamethoxazole/Trimethoprim [Bactrim DS -] 1 tab PO DAILY #30 tablet 11/01/13 Benztropine Mesylate [Cogentin -] 1 mg PO HS #30 tablet 03/16/15 Mirtazapine [Remeron -] 15 mg PO HS #30 tablet 03/16/15 Albuterol 0.083% Nebulizer Zoila [Ventolin 0.083% Nebulizer Soln -] 1 neb PO Q4HWA 04/27/19 Atorvastatin Ca [Lipitor] 10 mg PO DAILY 04/27/19 Azithromycin [Zithromax] 500 mg PO DAILY 04/27/19 Clonidine HCl 0.2 mg PO BID 04/27/19 Emtricitabine/Tenofovir [Truvada -] 1 tablet PO DAILY 04/27/19 Folic Acid 1 mg PO DAILY 04/27/19 Multivitamin [One-Daily Multi-Vitamin] 1 tablet PO DAILY 04/27/19 Quetiapine Fumarate [Seroquel -] 25 mg PO HS #30 tablet 04/27/19 Thiamine HCl [Vitamin B-1] 1 tablet PO DAILY 04/27/19 Zinc Sulfate [Orazinc] 1 cap PO DAILY 04/27/19 Anemia: No Asthma: No Cancer: No Cardiac Disorders: No CVA: No COPD: No (Bronchitis) CHF: No Dementia: No Diabetes: Yes (NOT ON MEDS) GI Disorders: No Disorders: No HTN: No Hypercholesterolemia: No Kidney Stones: No Liver Disease: No Seizures: No Thyroid Disease: No Other medical history: heroin abuse - Surgical History Abdominal Surgery: No Appendectomy: No Cardiac Surgery: No Cholecystectomy: No Lung Surgery: No Neurologic Surgery: No Orthopedic Surgery: No - Reproductive History Testicular Surgery: No - Psycho Social/Smoking Cessation Hx Smoking History: Never smoked Have you smoked in the past 12 months: Yes Number of Cigarettes Smoked Daily: 10 Cigars Per Day: 0 Information on smoking cessation initiated: No 'Breaking Loose' booklet given: 04/27/19 Hx Alcohol Use: No Drug/Substance Use Hx: Yes (heroin) Substance Use Type: Alcohol, Heroin Hx Substance Use Treatment: Yes ([facility]) *Physical Exam - Vital Signs Last Vital Signs Temp Pulse Resp BP Pulse Ox 98.1 F 81 17 111/58 L 99 04/28/19 15:17 04/28/19 15:17 04/28/19 15:17 04/28/19 15:17 04/28/19 16:05 - Physical Exam General Appearance: No: Apparent Distress Respiratory/Chest: positive: Lungs Clear, Normal Breath Sounds. negative: Respiratory Distress Cardiovascular: positive: Regular Rhythm, Regular Rate, S1, S2. negative: Murmur Gastrointestinal/Abdominal: positive: Normal Bowel Sounds, Soft, Other (around 1x1 cm nodule palpable on deep palpation along RUQ, feels firm, mobile, no change in skin color noted). negative: Tender, Distended, Guarding, Rebound, Hernia, Mass Neurologic: positive: Alert, Normal Mood/Affect ED Treatment Course - LABORATORY CBC & Chemistry Diagram: 04/28/19 16:15 04/28/19 16:15 - ADDITIONAL ORDERS Additional order review: Laboratory Results 04/28/19 04/28/19 04/28/19 16:15 16:15 16:15 PT with INR INR Sodium 139 Potassium 4.2 Chloride 105 Carbon Dioxide 27 Anion Gap 6 L BUN 13.3 Creatinine 0.6 Est GFR (CKD-EPI)AfAm 133.98 Est GFR (CKD-EPI)NonAf 115.60 Random Glucose 96 Lactic Acid 1.2 Calcium 9.1 Total Bilirubin 0.4 AST 37 ALT 66 H Alkaline Phosphatase 50 Total Protein 6.6 Albumin 3.4 Lipase 376 04/28/19 16:15 PT with INR 10.70 INR 0.91 Sodium Potassium Chloride Carbon Dioxide Anion Gap BUN Creatinine Est GFR (CKD-EPI)AfAm Est GFR (CKD-EPI)NonAf Random Glucose Lactic Acid Calcium Total Bilirubin AST ALT Alkaline Phosphatase Total Protein Albumin Lipase 04/28/19 16:15 RBC 4.40 MCV 92.9 MCHC 32.7 RDW 15.4 Neutrophils % 52.0 Lymphocytes % 31.3 Monocytes % 11.6 H Eosinophils % 4.4 Basophils % 0.7 Medical Decision Making - Medical Decision Making 53 y/o M with hx of alcohol and opoid dependence (last used 5 days ago), HIV, DM (diet controlled), depression, bronchitis, currently undergoing detox, was sent from [facility] for evaluation of lump along RUQ, which he noted 3 days ago. States the site does not bother him but was told he needed to get it evaluated. Mentions having few episodes of NBNB emesis and diarrhea, but that was from withdrawal of drugs and that has resolved few days ago. Denies fever, sob, urinary complaints. Denies prior abdominal surgeries, heavy lifting. Denies IVDU. Labs unremarkable Patient appears comfortable on exam; does not appear as hernia ?1x1 cm nodule, which is not causing discomfort to patient Will refer to surgery for further eval D/W Dr. Badillo from [facility] - patient to go back to [facility] 04/28/19 17:23 Discharge - Discharge Information Problems reviewed: Yes Clinical Impression/Diagnosis: Nodule of skin of abdomen Condition: Stable Disposition: HOME - Admission No - Additional Discharge Information Prescription Drug Monitoring Program (I-STOP) results: I-STOP not reviewed - Follow up/Referral Referrals: Magdaleno Islas MD [Staff Physician] - 2 Days - Patient Discharge Instructions Additional Instructions: Thank you for choosing [facility]. It was a pleasure taking care of you. You were referred to surgery for further evaluation of this lump on your abdomen Return to the Emergency Department if your symptoms worsen or persist, you have fever, severe abdominal pain, vomiting, increase in size of nodule, change in skin color or other concerning symptoms. - Post Discharge Activity
[2019-04-28 17:43] LABS: MEAN PLT VOLUME 8.7 fl (7.5-11.1); PLATELET COUNT 175 K/MM3 (134-434)
[2019-04-28 17:44] LABS: PLATELET ESTIMATE ADEQUATE
[2019-04-28 18:34] VITALS: BP 110/69; PULSE 70; TEMP 97.9
== END 2019-04-28 18:37 | disposition home or self-care (01) ==
LOC: JER 14:49
DX: R22.9 Localized swelling, mass and lump, unspecified (principal); F11.20 Opioid dependence, uncomplicated; F10.20 Alcohol dependence, uncomplicated; Z21 Asymptomatic human immunodeficiency virus [HIV] infection status; E11.9 Type 2 diabetes mellitus without complications; F32.9 Major depressive disorder, single episode, unspecified; J40 Bronchitis, not specified as acute or chronic; Z91.018 Allergy to other foods
CPT/HCPCS: 36415; 80053; 83605; 83690; 85025; 85610; 86850; 86900; 86901; 99284-25